=== PATIENT | female | born 1955 | race Caucasian/White ===

== ENCOUNTER 2018-09-23 05:16 | Observation (INO) | payer BC, MEDICARE ==
[2018-09-23] MEDS ORDERED: Nitroglycerin 2% Ointment 1 INCH/1 GM Packet ONE (05:53)
[2018-09-23] MEDS ORDERED: Morphine 4 MG/ML VIAL ONE (05:53)
--- NOTE | 2018-09-23 08:14 | CT ---
CTA OF THE THORAX UTILIZING IV CONTRAST AND 3D REFORMATTED IMAGING: INDICATION: Left-sided chest pain for 4 hours, elevated D-dimer, and history of mastectomy. COMPARISON: CT of the chest dated 05/14/2009. FINDINGS: Mastectomy changes bilaterally are stable. NO central or segmental pulmonary embolus is evident. Th ere is some patchy airspace opacity within the superior lingula and left upper lobe which is nonspeci fic. There is subsegmental volume loss within the right lower lobe. There is calcified granuloma in the right lower lobe. No pleural effusion is evident. There is a moderate-sized hiatal hernia. Th ere is prominent fatty infiltration of the liver. Adrenal glands appear within normal limits. No definite acute osseous abnormality is evident. IMPRESSION: 1. Patchy airspace opacity within the left upper lobe and superior lingula may reflect infiltrate. Recommend correlation for any symptoms and signs of pneumonia. 2. No central or segmental pulmonary embolus. 3. Findings of prior granulomatous disease. 4. Moderate hiatal hernia. 5. Prominent fatty liver. POS: BH
[2018-09-23 09:44] LABS: Troponin I Less than 0.010 ng/mL (< 0.028)
[2018-09-23 10:17] VITALS: BMI 25.4
[2018-09-23] MEDS ORDERED: Ibuprofen 200 MG TAB PO PRN (11:46)
[2018-09-23] MEDS ORDERED: Ondansetron ODT 4 MG TAB PO PRN (11:46)
[2018-09-23] MEDS ORDERED: Acetaminophen 500 MG TAB PO PRN (11:46)
[2018-09-23] MEDS ORDERED: Ondansetron PF 4 MG/2 ML Vial IVP PRN (11:46)
[2018-09-23] MEDS ORDERED: Diabetic Tussin 200 MG/10 ML UDCUP PO PRN (11:46)
[2018-09-23] MEDS ORDERED: Ketorolac Tromethamine 30 MG/ML VIAL ONE (12:03)
[2018-09-23] MEDS: Ketorolac Tromethamine 30 MG/ML VIAL IVP SCH ×2 (12:20→17:31)
--- NOTE | 2018-09-23 17:08 | HP ---
PRIMARY CARE PROVIDER: Dr. Arabella Paul in [place], [place]. CHIEF COMPLAINT: Left-sided chest pain. HISTORY OF PRESENT ILLNESS: This is a 63-year-old female, who presents to [facility] Emergency Department, complaining of sharp left-sided chest pain, worse with deep inspiration and positional changes that began approximately 1 a.m. on 09/23/2018. The patient states she woke up with the pain, went to the restroom and adjusted her position without specific relief. The patient noted deep inspiration made the pain worse with radiation from front of her chest to the back. The patient denied any fever or chills, but states she was recently diagnosed with a bronchitis and placed on doxycycline as well as Tessalon Perles. The patient states she also received prednisone injection approximately 48 hours prior to this evaluation. The patient denied any left arm or jaw pain and states she was recently in her yard doing spring clean up within the last 24 hours. The patient states she was very active with maintenance of her home and yard and denies any recent fall or injury. 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 The patient admits to history of mitral valve prolapse and premature ventricular contractions; however, no specific change or medication adjustment was recommended. In the emergency room, the patient underwent general evaluation including EKG and chest imaging showing no acute process. CT angiogram was also performed due to a mild elevated D-dimer; however, there was no evidence for pulmonary embolus. The patient received aspirin, nitroglycerin transdermally, and morphine sulfate. PAST MEDICAL HISTORY: 1. Breast cancer status post bilateral mastectomy with chemotherapy and radiation. 2. Acute bronchitis on current doxycycline. 3. Diverticulosis. 4. Gastroesophageal reflux disease. 5. Mitral valve prolapse. PAST SURGICAL HISTORY: Status post mastectomy. CURRENT MEDICATIONS: 1. Dexilant 30 mg p.o. daily. 2. Doxycycline 100 mg p.o. b.i.d. ALLERGIES: TO ERYTHROMYCIN. FAMILY HISTORY: No strong family history of early coronary artery disease. SOCIAL HISTORY: The patient is , resides in the [place], [place] area. No current alcohol, tobacco, or illicit drug use. Functional of all activities of daily living. REVIEW OF SYSTEMS: CONSTITUTIONAL: Negative for weight loss or gain, ability to conduct usual activities. SKIN: Negative for rash, itching. EYES: Negative for double vision, pain. ENT/MOUTH: Negative for nose bleeding, neck stiffness, pain, tenderness. CARDIOVASCULAR: Negative for palpitations, dyspnea on exertion, orthopnea. RESPIRATORY: Negative for shortness of breath, wheezing, cough, hemoptysis, fever or night sweats. GASTROINTESTINAL: Negative for poor appetite, abdominal pain, heartburn, nausea, vomiting, constipation, or diarrhea. GENITOURINARY: Negative for urgency, frequency, dysuria, nocturia. MUSCULOSKELETAL: Negative for pain, swelling. NEUROLOGIC/PSYCHIATRIC: Negative for anxiety, depression. ALLERGY/IMMUNOLOGIC: Negative for skin rash, bleeding tendency. Otherwise, negative except as stated per HPI. PHYSICAL EXAMINATION: VITAL SIGNS: On admission; blood pressure 181/64, pulse 75, respiratory rate 18, temperature 97.7 degrees Fahrenheit, and O2 saturation 98% on room air. GENERAL APPEARANCE: This is a 63-year-old female, alert and oriented x3, pleasant, conversant, smiling, in no acute distress. HEENT: Pupils are equal, round, and reactive to light and accommodation. Extraocular muscles are intact. No scleral icterus. No conjunctival injection. Nares patent. OP is clear. Teeth in good repair. NECK: Supple. No cervical adenopathy. No thyromegaly. No carotid bruits. No JVD appreciated. Cervical spine with full active and passive range of motion. No meningeal signs noted. CHEST: Lungs are clear to auscultation bilaterally. Positive tenderness to palpation of the left chest wall in the T7-T8 distribution and paravertebral musculature with associated tenderness in the left lower sternal border at the seventh rib. Mild costochondral tenderness noted. CARDIOVASCULAR: S1 and S2 without noted murmur, rub, or gallop. ABDOMEN: Rounded, soft, nontender, and nondistended. Bowel sounds are positive in all 4 quadrants. There is no hepatosplenomegaly. No abdominal bruits. No rebound or guarding appreciated. EXTREMITIES: Warm and dry with fair turgor. No clubbing, cyanosis, or asymmetric edema appreciated. Pulses palpable distally at the dorsalis pedis, posterior tibial, and popliteal arteries bilaterally. Capillary refill less than 2 seconds. NEUROLOGIC: Cranial nerves 2 through 12 are grossly intact. No focal or lateralizing signs appreciated. PERTINENT LAB AND X-RAY FINDINGS: Sodium 146, potassium 3.1, chloride 110, CO2 of 23, BUN 14, creatinine 0.81, glucose 96, and calcium 9.5. LFTs showed AST 29, ALT of 62, and alkaline phosphatase 98. Troponin I negative x3. D-dimer 0.47. CBC within normal limits. Portable chest x-ray dated 09/23/2018, showed no acute cardiopulmonary process. CT angiogram of the chest dated 09/23/2018, showed no evidence for pulmonary embolus. EKG dated 09/23/2018, by my interpretation shows sinus mechanism with heart rates in the 70s. Normal R-wave progression noted in the precordial leads. Normal axis. No acute ST-T wave changes appreciated. ASSESSMENT AND PLAN: 1. Chest pain. Appears musculoskeletal in origin. Symptomatic management with Toradol 30 mg IV q.6 hours. Tylenol p.r.n. Education reassurance given. No current evidence to suggest underlying angina or coronary etiology. 2. Gastroesophageal reflux disease. We will continue home regimen of proton pump inhibitor. 3. Mitral valve prolapse. Supportive management. No current intervention recommended. Recent extensive cardiac evaluation without recommendations for adjustment to chronic medications. 4. Hypokalemia. Mild. We will repeat potassium level in the a.m. 5. Prophylaxis. Sequential compression devices while in bed. Activity ad bernardino. 6. Code status is full. Surrogate medical decision maker is the patient's spouse. Job ID: [id number]
[2018-09-23] MEDS ORDERED: Iopamidol 370 76% 100 ML VIAL ONE (17:10)
[2018-09-23] MEDS: Famotidine 20 MG TAB PO SCH (21:21)
[2018-09-23] MEDS: Doxycycline 100 MG CAP PO SCH (21:21)
[2018-09-24] MEDS: Ketorolac Tromethamine 30 MG/ML VIAL IVP SCH ×2 (00:02→06:09)
[2018-09-24 05:41] LABS: Anion Gap 12 mmol/L (10-20); BUN (Urea Nitrogen) 12 mg/dL (9.8-20.1); Calc. Creatinine Clearance 94 mL/min (70-130); Calcium 9.1 mg/dL (7.8-10.44); Carbon Dioxide 26 mmol/L (23-31); Chloride 107 mmol/L (98-107); Estimated GFR-MDRD Greater than 90; Glucose 90 mg/dL (80-115); Potassium 3.6 mmol/L (3.5-5.1); Sodium 141 mmol/L (136-145)
[2018-09-24 07:43] VITALS: BP 139/79; TEMP 98.1
[2018-09-24] MEDS: Doxycycline 100 MG CAP PO SCH (07:58)
[2018-09-24] MEDS: Famotidine 20 MG TAB PO SCH (07:58)
--- NOTE | 2018-09-24 11:04 | DIS ---
DATE OF ADMISSION: 09/23/2018 DATE OF DISCHARGE: 09/24/2018 DISCHARGE DIAGNOSES: 1. Musculoskeletal chest pain, improved. 2. Gastroesophageal reflux disease, stable. 3. Mitral valve prolapse, stable. 4. Hypokalemia, resolved. CONSULTATIONS: None. PERTINENT LAB AND X-RAY FINDINGS: Potassium ranged between 3.1 to 3.6. Troponin I negative x3. CBC within normal limits. Portable chest x-ray dated 09/23/2018 showed no acute cardiopulmonary process. CT angiogram of the chest dated 09/23/2018 showed no evidence for pulmonary embolus. HOSPITAL COURSE: The patient was observed on the telemetry unit after initially presenting with left-sided chest pain, undergoing initial cardiac biomarker rule out. Initial workup was essentially unrevealing and portable chest imaging and CT angiogram of the chest were negative. Telemetry monitoring showed no evidence of acute arrhythmia or dysrhythmia with sinus mechanism throughout the hospital course. The patient was noted with chest wall tenderness on clinical exam and treated with Toradol with overall resolution of her chest pain. The patient remained clinically stable throughout the hospital course, tolerating regular oral intake and voiding appropriately. I have examined the patient at the time of discharge and discussed followup instructions. The patient verbalized understanding and in agreement and ready for discharge on 09/24/2018. DISCHARGE MEDICATIONS: 1. Dexilant 30 mg p.o. daily. 2. Doxycycline 100 mg p.o. b.i.d. FOLLOWUP: The patient may follow up with her primary care provider, Arabella Eveliafather as needed. CONDITION ON DISCHARGE: Stable. ACTIVITY: Ad-bernardino. DIET: Heart healthy. CODE STATUS: Full. DISPOSITION: Home, 09/24/2018. Job ID: [id number]
== END 2018-09-24 09:28 | disposition home or self-care (01) ==
LOC: ERS 05:16 → ERHOLD 06:58 → 2SW 10:10
PROVIDERS: ADMIT Internal Medicine; ATTEND Internal Medicine
DX: R07.89 Other chest pain (principal); K21.9 Gastro-esophageal reflux disease without esophagitis; I49.3 Ventricular premature depolarization; I34.1 Nonrheumatic mitral (valve) prolapse; J20.9 Acute bronchitis, unspecified; E87.6 Hypokalemia; K57.90 Diverticulosis of intestine, part unspecified, without perforation or abscess without bleeding; Z85.3 Personal history of malignant neoplasm of breast; Z92.21 Personal history of antineoplastic chemotherapy; Z92.3 Personal history of irradiation; Z90.13 Acquired absence of bilateral breasts and nipples; Z88.1 Allergy status to other antibiotic agents; Z79.2 Long term (current) use of antibiotics; Z79.899 Other long term (current) drug therapy
CPT/HCPCS: 36415; 71275; 80048; 93005; 96374; 96376; G0378; J1885; J2270; Q9967

== ENCOUNTER 2021-06-06 15:23 | Outpatient (CLI) | payer MEDICARE ==
[2021-06-07 11:05] LABS: SARS-CoV-2 PCR by NAA Not Detected (NotDetected)
== END 2021-06-06 15:24 | disposition home or self-care (01) ==
LOC: LABBT 15:23
PROVIDERS: ATTEND Ophthalmology Retina Specialist
DX: Z01.812 Encounter for preprocedural laboratory examination (principal); Z20.822 Contact with and (suspected) exposure to COVID-19
CPT/HCPCS: U0003; U0005

== ENCOUNTER 2021-06-09 08:33 | Day surgery (SDC) | payer MEDICARE ==
[2021-06-07 16:29] VITALS: BMI 24.0
[~2021-06-09 08:33] MED LIST: Fluorouracil 100 MG, Enoxaparin Sodium 25 MG, EPINEPHrine 0.3 MG in Ophthalmic Irrigati... IRR SCH
[2021-06-09] MEDS ORDERED: Cyclopentolate 1% Opth Drop 2 ML BOT ONE (08:56)
[2021-06-09] MEDS ORDERED: Phenylephrine 2.5% Ophth Soln 5 ML BOT ONE (08:57)
[2021-06-09] MEDS ORDERED: Maxitrol 0.1% Opth Oint 3.5 GM TUBE ONE (09:58)
[2021-06-09] MEDS ORDERED: CEFAZOLIN 1 GM VIAL ONE (09:58)
[2021-06-09] MEDS ORDERED: Lidocaine 4% PF 5 ML AMP ONE (09:58)
[2021-06-09] MEDS ORDERED: Enoxaparin Sodium 30 MG/0.3 ML SYRINGE ONE (09:58)
[2021-06-09] MEDS ORDERED: PROPOFOL 200 MG/20 ML VIAL ONE (09:58)
[2021-06-09] MEDS ORDERED: Bupivacaine PF 0.75% SDV 10 ML ONE (09:58)
[2021-06-09] MEDS ORDERED: Lidocaine 1% PF 5 ML VIAL ONE (09:58)
[2021-06-09] MEDS ORDERED: Triamcinolone 40 MG/ML VIAL ONE (09:58)
== END 2021-06-09 11:00 | disposition home or self-care (01) ==
LOC: SDC 08:33
PROVIDERS: ATTEND Ophthalmology Retina Specialist
PROC: 08T53ZZ Resection of Left Vitreous, Percutaneous Approach (ICD-10-PCS; principal; 2021-06-09)
PROC: 08NF3ZZ Release Left Retina, Percutaneous Approach (ICD-10-PCS; 2021-06-09)
DX: H35.342 Macular cyst, hole, or pseudohole, left eye (principal); Z79.899 Other long term (current) drug therapy; Z88.1 Allergy status to other antibiotic agents; Z91.048 Other nonmedicinal substance allergy status
CPT/HCPCS: 67025; J0171; J0690; J1650; J2704; J3301; J3490; J9190